=== PATIENT | male | born 1960 | race Caucasian/White ===

== ENCOUNTER 2021-05-03 10:55 | Emergency (ER) | payer MEDICAID, OTHER ==
[~2021-05-03] VITALS: Ht 162.6 cm; Wt 68.0 kg
[~2021-05-03 10:55] MED LIST: AMLO10TA80 PO; ASPI-986 PO; FURO20TA4 PO; INSU3INS6 SUBCUT; INSULIN SQ; LACT10SO6 MT; PHEN-815 PO; PRED1DRO RIGHTEYE; SPIR25TA PO; SULF1TAB47 PO
[2021-05-03 20:38] LABS: CLARITY URINE CLEAR (CLEAR); COLOR URINE YELLOW (YELLOW); KETONES URINE TRACE (NEGATIVE); LEUKOCYTE ESTERASE URINE NEGATIVE (NEGATIVE); NITRITE URINE NEGATIVE (NEGATIVE); OCCULT BLOOD URINE TRACE (NEGATIVE); PROTEIN URINE 1+ (NEGATIVE); SPECIFIC GRAVITY URINE 1.038 (1.005-1.030); UROBILINOGEN URINE 0.2 E.U./dL (0.2-1.0)
[2021-05-03] MEDS ORDERED: CLOT21CR TOP (22:18)
[2021-05-03] MEDS ORDERED: HYDR28.461 TP (22:18)
[2021-05-03 22:30] VITALS: BP 149/86
== END 2021-05-03 22:35 | disposition home or self-care (01) ==
LOC: ER 10:55
DX: N48.1 Balanitis (principal); E11.9 Type 2 diabetes mellitus without complications; Z79.899 Other long term (current) drug therapy
CPT/HCPCS: 81003; 99283